=== PATIENT | male | born 1975 | race Hispanic/Latino ===

== ENCOUNTER 2022-03-19 08:51 | Emergency (ER) | payer BC ==
[~2022-03-19] VITALS: Ht 172.7 cm; Wt 122.0 kg
[2022-03-19] MEDS ORDERED: LISINOPRIL10 MG PO (09:22)
== END 2022-03-19 09:57 | disposition home or self-care (01) ==
LOC: FSED 09:15
DX: J06.9 Acute upper respiratory infection, unspecified (principal); I10 Essential (primary) hypertension; Z88.0 Allergy status to penicillin
CPT/HCPCS: 83518; 87400; 99283